=== PATIENT | female | born 1965 | race Caucasian/White ===

== ENCOUNTER 2017-08-23 01:06 | Inpatient (IN) | payer OTHER ==
[2017-08-23 02:09] LABS: BASO % 0 % (0-3); EOS % 0 % (0-3); HEMATOCRIT 37.2 % (36.0-47.0); LYMPH # 0.7 x10^3/uL (1.0-4.8); LYMPH % 5 % (24-48); MEAN CORPUSCULAR HEMOGLOBIN 25 pg (25-35); MEAN CORPUSCULAR HGB CONC 32 g/dL (31-37); MEAN CORPUSCULAR VOLUME 77 fL (79-100); MONO # 0.4 x10^3/uL (0.0-1.1); MONO % 3 % (0-9); NEUT # 13.5 x10^3uL (1.8-7.7); NEUT % 93 % (31-73); PLATELET COUNT 456 x10^3/uL (140-400); RED BLOOD COUNT 4.85 x10^6/uL (3.50-5.40); RED CELL DISTRIBUTION WIDTH 15.6 % (11.5-14.5); WHITE BLOOD COUNT 14.6 x10^3/uL (4.0-11.0)
[2017-08-23 02:13] LABS: ADD MAN DIFF? YES
[2017-08-23] MEDS: ASPIRIN 325 MG TABLET PO (02:15)
[2017-08-23] MEDS ORDERED: MORPHINE SULFATE 4 MG/ML DISP.SYRIN. IV/SQ (02:15)
[2017-08-23 02:19] LABS: INR 1.1 (0.8-1.1); PARTIAL THROMBOPLASTIN TIME 30 SEC (24-38); PROTHROMBIN TIME PATIENT 13.9 SEC (11.7-14.0)
[2017-08-23 02:20] LABS: ANION GAP 14 (6-14); BLOOD UREA NITROGEN 11 mg/dL (7-20); BUN/CREATININE RATIO 11 (6-20); CARBON DIOXIDE 24 mmol/L (21-32); CHLORIDE 99 mmol/L (98-107); GFR 58.7; GLUCOSE 274 mg/dL (70-99); POTASSIUM 4.4 mmol/L (3.5-5.1); SODIUM 137 mmol/L (136-145)
[2017-08-23] MEDS: IV NORMAL SALINE 1000ML BAG 1,000 ML IV (02:25)
[2017-08-23 02:28] LABS: ALBUMIN 3.9 g/dL (3.4-5.0); ALBUMIN/GLOBULIN RATIO 0.8 (1.0-1.7); ALK PHOS 76 U/L (46-116); ALT (SGPT) 40 U/L (14-59); AST (SGOT) 24 U/L (15-37); TOTAL BILIRUBIN 0.4 mg/dL (0.2-1.0); TOTAL PROTEIN 8.7 g/dL (6.4-8.2)
[2017-08-23 02:29] LABS: D-DIMER < 0.27 ug/mlFEU (0.00-0.50)
[2017-08-23 02:32] LABS: NT-PRO BNP 98 pg/mL (0-124)
[2017-08-23 02:40] LABS: TROPONINI < 0.017 ng/mL (0.000-0.055)
[2017-08-23] MEDS: IOHEXOL 300 MG/ML 100ML VIAL. IV (02:59)
[2017-08-23] MEDS ORDERED: CONTRAST GIVEN MC (03:00)
[2017-08-23] MEDS: IBUPROFEN 600 MG TABLET. PO (03:01)
[2017-08-23] MEDS ORDERED: ONDANSETRON PF 4 MG/2 ML VIAL. IV (04:45)
[2017-08-23] MEDS ORDERED: MORPHINE SULFATE 4 MG/ML DISP.SYRIN. IV (04:45)
[2017-08-23] MEDS ORDERED: NITROGLYCERIN SUBLINGUAL 0.4 MG BOTTLE OF 25. SL (04:45)
[2017-08-23 04:58] LABS: ETHANOL < 10 mg/dL (0-10)
[2017-08-23 05:17] LABS: % BANDS 1 % (0-9); % LYMPHS 10 % (24-48); % MONOS 3 % (0-10); % SEGS 86 % (35-66); HYPOCHROMIA SLIGHT; PLT ESTIMATE INCREASED (ADEQUATE); POLYCHROMASIA SLIGHT
[2017-08-23 05:18] LABS: ANISOCYTOSIS SLIGHT
[2017-08-23 08:14] LABS: POC GLUCOSE 167 mg/dL (70-99)
[2017-08-23] MEDS ORDERED: ALBUTEROL SULFATE 2.5 MG/3 ML NEBU. NEB (08:45)
[2017-08-23] MEDS ORDERED: DEXTROSE 50% 25 GM / 50ML DISP.SYRIN. IV (08:45)
[2017-08-23] MEDS ORDERED: NON FORMULARY ITEM (Albuterol Sulfate (Proair Hfa Inhaler) 2 PUFF) INH (08:45)
[2017-08-23] MEDS ORDERED: guaiFENesin DM 200MG/20MG 10 ML SYRUP PO (09:00)
[2017-08-23 09:27] LABS: TROPONINI < 0.017 ng/mL (0.000-0.055)
[2017-08-23 09:40] LABS: CHOLESTEROL 204 mg/dL (0-200); HDLC 43 mg/dL (40-60); LDLC 144 mg/dL (0-100); NON-HDL CHOLESTEROL 161 mg/dL (0-129); TRIGLYCERIDES 84 mg/dL (0-150); VLDLC 17 mg/dL (0-40)
[2017-08-23] MEDS: ENOXAPARIN 40 MG/0.4 ML SYRINGE. SQ ×2 (09:41→21:31)
[2017-08-23] MEDS: hydroCHLOROthiazide 12.5 MG CAPSULE PO (09:42)
[2017-08-23] MEDS: CITALOPRAM 10 MG TABLET. PO (09:42)
[2017-08-23] MEDS: PANTOPRAZOLE 40 MG TABLET.DR. PO (09:43)
[2017-08-23] MEDS: LISINOPRIL 20 MG TABLET PO (09:43)
[2017-08-23 09:47] LABS: CHOLESTEROL/HDL RATIO 4.7
[2017-08-23] MEDS: HYDROcodone/CHLORPHEN POLIS 5 ML SUS.ER.12H PO (10:51)
[2017-08-23 11:06] LABS: TROPONINI < 0.017 ng/mL (0.000-0.055)
[2017-08-23 11:31] LABS: POC GLUCOSE 173 mg/dL (70-99)
[2017-08-23 17:14] LABS: POC GLUCOSE 128 mg/dL (70-99)
[2017-08-23 20:53] LABS: POC GLUCOSE 149 mg/dL (70-99)
[2017-08-23] MEDS: SIMVASTATIN 40 MG TABLET. PO (21:30)
[2017-08-24 04:42] LABS: ADD MAN DIFF? NO
[2017-08-24 04:52] LABS: BASO % 1 % (0-3); EOS # 0.3 x10^3/uL (0.0-0.7); EOS % 3 % (0-3); HEMATOCRIT 36.4 % (36.0-47.0); HEMOGLOBIN 11.6 g/dL (12.0-15.5); LYMPH # 2.3 x10^3/uL (1.0-4.8); LYMPH % 24 % (24-48); MEAN CORPUSCULAR HEMOGLOBIN 25 pg (25-35); MEAN CORPUSCULAR HGB CONC 32 g/dL (31-37); MEAN CORPUSCULAR VOLUME 77 fL (79-100); MONO # 0.9 x10^3/uL (0.0-1.1); MONO % 10 % (0-9); NEUT # 5.8 x10^3uL (1.8-7.7); NEUT % 62 % (31-73); PLATELET COUNT 353 x10^3/uL (140-400); RED BLOOD COUNT 4.71 x10^6/uL (3.50-5.40); RED CELL DISTRIBUTION WIDTH 15.5 % (11.5-14.5); WHITE BLOOD COUNT 9.3 x10^3/uL (4.0-11.0)
[2017-08-24 05:01] LABS: ANION GAP 8 (6-14); BLOOD UREA NITROGEN 13 mg/dL (7-20); CALCIUM 8.8 mg/dL (8.5-10.1); CARBON DIOXIDE 28 mmol/L (21-32); CHLORIDE 104 mmol/L (98-107); CREATININE 0.9 mg/dL (0.6-1.0); GFR 66.3; GLUCOSE 126 mg/dL (70-99); SODIUM 140 mmol/L (136-145)
[2017-08-24 07:36] LABS: POC GLUCOSE 121 mg/dL (70-99)
[2017-08-24 12:31] LABS: POC GLUCOSE 132 mg/dL (70-99)
[2017-08-24] MEDS: PANTOPRAZOLE 40 MG TABLET.DR. PO (12:46)
[2017-08-24] MEDS: CITALOPRAM 10 MG TABLET. PO (12:47)
[2017-08-24] MEDS: LISINOPRIL 20 MG TABLET PO (12:47)
[2017-08-24] MEDS: hydroCHLOROthiazide 12.5 MG CAPSULE PO (12:48)
[2017-08-24] MEDS: ENOXAPARIN 40 MG/0.4 ML SYRINGE. SQ (12:54)
== END 2017-08-24 15:50 | disposition home or self-care (01) | DRG 313 ==
LOC: ER 01:06 → 6 SOUTH 04:16
DX: R07.89 Other chest pain (principal); I20.9 Angina pectoris, unspecified; E66.01 Morbid (severe) obesity due to excess calories; Z68.41 Body mass index [BMI] 40.0-44.9, adult; E11.9 Type 2 diabetes mellitus without complications; E78.00 Pure hypercholesterolemia, unspecified; E78.5 Hyperlipidemia, unspecified; F41.9 Anxiety disorder, unspecified; G47.00 Insomnia, unspecified; I10 Essential (primary) hypertension; K21.9 Gastro-esophageal reflux disease without esophagitis; Z82.49 Family history of ischemic heart disease and other diseases of the circulatory system
CPT/HCPCS: 36415; 71045; 71275; 78452; 80048; 80053; 80061; 82962; 83880; 84484; 85007; 85025; 85379; 85610; 85730; 93005; 93017; 93306; 96374; 99285; 99285-25; A9500; G0480; J1650; J7030; Q9967